=== PATIENT | male | born 1985 | race African-American/Black ===

== ENCOUNTER 2025-04-26 10:04 | Emergency (ER) | payer OTHER ==
[~2025-04-26] VITALS: Ht 180.3 cm; Wt 77.1 kg
[2025-04-26 10:11] VITALS: TEMP 98.1
[2025-04-26] MEDS ORDERED: ONDANSETRON HCL/PF 4 MG/2 ML VIAL ONE (10:19)
[2025-04-26] MEDS: IV NS 0.9% 1,000 ML BAG IV ONE (10:35)
[2025-04-26] MEDS: ONDANSETRON HCL/PF 4 MG/2 ML VIAL IVP ONE (10:36)
[2025-04-26 11:00] LABS: PLATELET COUNT (AUTO) 324 K/uL (150-450); RED BLOOD CELL COUNT(AUTO) 4.69 MIL/uL (4.5-6.0); RED CELL DISTRIBUTION WIDTH 12.7 % (11.5-15.0); WHITE BLOOD COUNT (AUTO) 9.0 K/uL (4.3-11.0)
[2025-04-26 11:20] LABS: CALCIUM, SERUM 8.7 mg/dL (8.5-10.1); SODIUM SERUM 133.0 mmol/L (136-145); UREA NITROGEN, BLOOD 14.0 mg/dL (7-18)
[2025-04-26 11:21] LABS: ASPARTATE AMINOTRANSFERASE 24.0 U/L (15-37); CREATININE 0.7 mg/dL (0.6-1.3); TOTAL PROTEIN, SERUM 7.5 g/dL (6.4-8.2)
[2025-04-26] MEDS: KETOROLAC TROMETHAMINE INJ 30 MG/ML VIAL IV ONE (11:52)
[2025-04-26 11:53] VITALS: BP 138/87; O2SAT 99
== END 2025-04-26 11:53 ==
LOC: ER 10:10
DX: Z02.89 Encounter for other administrative examinations (principal); M79.10 Myalgia, unspecified site; R11.2 Nausea with vomiting, unspecified; F11.10 Opioid abuse, uncomplicated
CPT/HCPCS: 99283; 96374; 96361; 85025; 80048; 83690; 80076; 36415; J2405; J7030